=== PATIENT | male | born 1970 | race Caucasian/White ===

== ENCOUNTER → 2016-07-13 | Day surgery (SDC) | payer BC ==
[~2016-07-13] VITALS: Ht 182.9 cm; Wt 80.5 kg
[~2016-07-13] MED LIST: ADVIL LIQUI-GE200 MG PO; CLARITIN10 MG PO
--- NOTE | ~2016-07-13 | HP ---
PATIENT'S NAME: ELIZABETH BE [facility] AGE: 45 Y [address] ROOM: [place] [address] LOCATION: [facility] [place] ADMIT DATE: 07/13/2016 History & Physical DISCHARGE DATE: FAMILY PHYSICIAN: PHYSICIAN, NO ATTENDING PHYSICIAN: Andree Eduardo DATE OF SERVICE: HISTORY OF PRESENT ILLNESS: A 45-year-old male, who has a left spermatocele, which has been increasing in size and now causes him discomfort to the point where he wants it removed. He denies any voiding symptoms, has no difficulty voiding. He has a past history of having a right orchidopexy done in 1985. 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 PAST MEDICAL HISTORY/ILLNESSES: None. OPERATIONS: Orchidopexy. ALLERGIES: NONE KNOWN. PHYSICAL EXAMINATION: GENERAL: A well-developed, well-nourished male. VITAL SIGNS: 120/78, weight 198 pounds. CHEST: Clear. HEART: Normal sinus rhythm. ABDOMEN: Soft with no palpable masses. : Normal penis and meatus, a large left spermatocele, small atrophic right testicle. Prostate is normal to palpation. RECTAL: Negative. IMPRESSION: Spermatocele, left. PLAN: Excision of spermatocele. PATIENT'S NAME: ELIZABETH BE [facility] AGE: 45 Y [address] ROOM: [place] [address] LOCATION: [facility] [place] ADMIT DATE: 07/13/2016 History & Physical DISCHARGE DATE: FAMILY PHYSICIAN: PHYSICIAN, NO ATTENDING PHYSICIAN: Andree Eduardo ANDREE EDUARDO MD EKL/modl /[id number] D: T: 433 HISTORY & PHYSICAL
--- NOTE | ~2016-07-13 | OR ---
PATIENT'S NAME: ELIZABETH BE [facility] AGE: 45 Y [address] ROOM: [place] [address] [place] [facility] [place] DATE: 07/13/2016 OR/Procedure Report DISCHARGE DATE: FAMILY PHYSICIAN: PHYSICIAN, ZEB ATTENDING PHYSICIAN: Andree Eduardo SURGEON: Andree Eduardo MD [employer] ARCHITECT: DATE OF PROCEDURE: 07/13/2016 PREOPERATIVE DIAGNOSIS: Left spermatocele. POSTOPERATIVE DIAGNOSIS: Left spermatocele. OPERATION: Excision of left spermatocele. DESCRIPTION OF PROCEDURE: After adequate general anesthesia, he was prepped and draped in the usual fashion. Incision was made in the left hemiscrotal area and the testicle and spermatocele were exposed into the surgical field and with careful dissection, the spermatocele was dissected off the spermatic cord. The patient was still concerned about fertility and since he has a small atrophic left kidney, the epididymis was preserved and spermatocele was dissected off the epididymis, leaving it uninjured and in its normal position. Bleeding was controlled. The testicle was placed back in its normal anatomical position and then incision was closed with 3-0 Vicryl and 3-0 plain. He was accompanied to recovery area. ANDREE EDUARDO MD EKL/modl /[id number] d: 07/13/16 1258 t: 07/15/16 0440, OPERATIVE SUMMARY
== END | disposition disaster alternative care site (69) ==
LOC: GPOC 07-08 11:00 → EDBD 07-08 11:00 → GSDC 05:12
PROC: 0VBK0ZZ Excision of Left Epididymis, Open Approach (ICD-10-PCS; principal; 2016-07-13)
DX: N43.41 Spermatocele of epididymis, single (principal); Z98.890 Other specified postprocedural states
CPT/HCPCS: J0690; J1100; J2001; J2250; J2405; J7120